=== PATIENT | female | born 1965 | race Caucasian/White ===

== ENCOUNTER 2018-03-27 16:58 | Inpatient (IN) ==
[2018-03-27] MEDS ORDERED: Bisacodyl 10 MG Supp RECTAL PRN (22:41)
[2018-03-28] MEDS: HYDROmorphone PF Inj 2 MG/ML Vial IV.PUSH PRN ×2 (02:09→22:05)
[2018-03-28] MEDS ORDERED: Chlorhexidine Gluconate 2% 1 Pack (2 Cloths) TOPICAL ONE (03:16)
[2018-03-28] MEDS ORDERED: Metoprolol Tartrate 25 MG Tablet PO ONE (03:16)
[2018-03-28] MEDS ORDERED: Sodium Chlor 0.9% Inj 500 ML IV.SIG SCH (04:00)
[2018-03-28] MEDS: Sod Chloride 0.9% Inj 1,000 ML IV.CONT SCH ×3 (04:03→20:04)
[2018-03-28] MEDS: Acetaminophen 325 MG Tablet PO PRN ×2 (04:03→08:33)
--- NOTE | 2018-03-28 04:16 | P.HPIM ---
History of Present Illness Service: [facility] hospitalists Primary Care Physician: UNKNOWN Chief Complaint: Left ankle pain with inability to bear weight History of Present Illness: Mrs. Giraldo is a 53-year-old female with a history of lupus, fibromyalgia, Prachi's thyroiditis, migraines, gastroesophageal reflux disease, and basal cell skin cancer who presented to the emergency room in [place] on 03/27/2018 complaining of severe left ankle pain following a fall outside of her home. She was found to have a distal fibula fracture with lateral subluxation of tibiotalar joint and widened tib-fib syndesmosis on x-ray and was transferred to [facility] for further evaluation and management under the hospitalist service. Patient is seen in her hospital room. She reports severe headache as well as left ankle pain. She suspects that her headache may have been precipitated by IV opiates administered in [place] and also may be secondary to an increased state of anxiety that she is currently experiencing. She states she was walking [place] back of her house when she lost balance and fell. She had severe left ankle pain accompanied by nausea and dizziness after falling and states she could hear a "pop"as she fell down. She denies loss of consciousness, syncope, or hitting her head upon falling. She denies any recent fevers, chills, nausea, vomiting, diarrhea, chest pain, shortness of breath, or dizziness. Inpatient Certification: I certify that the inpatient services were ordered in accordance with Medicare regulations governing the order. This includes certification that hospital inpatient services are reasonable and necessary and in the case of services not specified as inpatient-only under 42 CFR 419.22(n), that they are appropriately provided as inpatient services in accordance to with the 2-midnight benchmark under 43 CFR 412.3(e) Estimated Total Length of Stay (Days): 3 Plans for Post Hospital Care: Home Review of Systems All other systems reviewed negative except as stated in HPI PMFSH - History History Provided By: Patient - Medical History Medical History: Medical History (Last Updated 03/28/18 @ 02:34 by Rachael Reilly RN) Anemia Asthma Fibromyalgia GERD (gastroesophageal reflux disease) History of blood product transfusion Hx of skin cancer, basal cell Hypothyroidism Lupus Migraine Prachi's disease - Surgical History Surgical History: Surgical History (Last Updated 10/01/18 @ 17:08 by Mellisa Monzon RN) H/O: - Family History Family History: Family History (Last Updated 03/28/18 @ 04:11 by BLAYNE Helm) Son Family history of asthma - Tobacco History Second Hand Smoke Exposure: No Tobacco Use In Past 30 Days: No Smoking Status: Never smoker - Alcohol History How Often Do You Have a Drink Containing Alcohol: Never - Substance Use History Substance History: No History of Abuse - Immunization History Hx Influenza Vaccine This Season: No Medications and Allergies Active Medications: Active Medications Acetaminophen (Tylenol) 650 mg PO Q4H PRN PRN Reason: Temp > 100.4/CRUZ Bisacodyl (Dulcolax Supp) 10 mg RECTAL DAILY PRN PRN Reason: SEVERE CONSITIPATION Hydromorphone HCl (Dilaudid Pf Inj) 1 mg IV.PUSH Q4H PRN PRN Reason: pain > 4 Sodium Chloride (Ns Inj) 1,000 mls @ 100 mls/hr IV.CONT .Q10H [facility] Lactated Ringer's (Lr 1000 Ml Inj) 1,000 mls @ 30 mls/hr IV.SIG .Q24H [facility] Stop: 03/29/18 03:29 Sodium Chloride (Ns Inj) 500 mls @ 30 mls/hr IV.SIG .Q10H [facility] Lorazepam (Ativan Inj) 1 mg IV.PUSH ONCE ONE Stop: 03/28/18 04:04 Ondansetron HCl (Zofran Inj) 4 mg IV.PUSH Q6H PRN PRN Reason: NAUSEA OR VOMITING Last Admin: 03/28/18 02:08 Dose: 4 mg Sennosides (Senokot) 17.2 mg PO Q12H PRN PRN Reason: Moderate Constipation Allergies Allergy/AdvReac Type Severity Reaction Status Date / Time Influenza Virus Vaccines Allergy Hives Verified 03/27/18 17:48 Home Medications Medication Instructions Recorded Confirmed Type levothyroxine 100 mg PO DAILY 03/27/18 03/28/18 History omeprazole-sodium bicarbonate 1 cap PO TID 03/27/18 03/28/18 History [Zegerid] Exam Vital signs: Intake & Output 03/27/18 03/27/18 03/28/18 06:59 18:59 06:59 Weight 103.419 kg Other: Weight On Admission 103.419 kg Narrative: GENERAL: This is a obese middle-aged female patient, complaining of a headache. SKIN: No rashes. Cool and dry. HEAD: Atraumatic. Normocephalic. EYES: No scleral icterus. No injection or drainage. ENT: Nose without bleeding, purulent drainage. NECK: Trachea midline. No JVD. CARDIOVASCULAR: Regular rate and rhythm without murmurs, gallops, or rubs. RESPIRATORY: Clear to auscultation. Breath sounds equal bilaterally. No wheezes , rales, or rhonchi. GASTROINTESTINAL: Normally active bowel sounds. Abdomen soft, non-tender, nondistended. No guarding. MUSCULOSKELETAL: Left lower extremity in splint. Patient is able to wiggle her toes, sensation is intact, and capillary refill is brisk. NEUROLOGICAL: Awake and alert. Motor and sensory grossly within normal limits. Normal speech. . Caprini VTE Risk Assessment Caprini VTE Risk Assessment: Moderate/High Risk (score >= 2) Caprini Risk Assessment Model: Point Value = 1 Point Value = 2 Point Value = 3 Point Value = 5 Age 41-60 Minor surgery BMI > 25 kg/m2 Swollen legs Varicose veins or History of unexplained or recurrent spontaneous Oral contraceptives or hormone replacement Sepsis (< 1 month) Serious lung disease, including pneumonia (< 1 month) Abnormal pulmonary function Acute myocardial infarction Congestive heart failure (< 1 month) History of inflammatory bowel disease Medical patient at bed rest Age 61-74 Arthroscopic surgery Major open surgery (> 45 min) Laparoscopic surgery (> 45 min) Malignancy Confined to bed (> 72 hours) Immobilizing plaster cast Central venous access Age >= 75 History of VTE Family history of VTE Factor V Leiden Prothrombin [id number] Lupus anticoagulant Anticardiolipin antibodies Elevated serum homocysteine Heparin-induced thrombocytopenia Other congenital or acquired thrombophilia Stroke (< 1 month) Elective arthroplasty Hip, pelvis, or leg fracture Acute spinal cord injury (< 1 month) Prophylaxis Regimen: Total Risk Factor Score Risk Level Prophylaxis Regimen 0-1 Low Early ambulation 2 Moderate Order ONE of the following: *Sequential Compression Device (SCD) *Heparin 5000 units SQ BID 3-4 Higher Order ONE of the following medications: *Heparin 5000 units SQ TID *Enoxaparin/Lovenox 40 mg SQ daily (WT < 150 kg, CrCl > 30 mL/min) *Enoxaparin/Lovenox 30 mg SQ daily (WT < 150 kg, CrCl > 10-29 mL/min) *Enoxaparin/Lovenox 30 mg SQ BID (WT < 150 kg, CrCl > 30 mL/min) AND/OR *Sequential Compression Device (SCD) 5 or more Highest Order ONE of the following medications: *Heparin 5000 units SQ TID (Preferred with Epidurals) *Enoxaparin/Lovenox 40 mg SQ daily (WT < 150 kg, CrCl > 30 mL/min) *Enoxaparin/Lovenox 30 mg SQ daily (WT < 150 kg, CrCl > 10-29 mL/min) *Enoxaparin/Lovenox 30 mg SQ BID (WT < 150 kg, CrCl > 30 mL/min) AND *Sequential Compression Device (SCD) Assessment and Plan - Plan Mrs. Giraldo is a 53-year-old female with a history of lupus, fibromyalgia, Prachi's thyroiditis, migraines, gastroesophageal reflux disease, and basal cell skin cancer who presented to the emergency room in [place] on 03/27/2018 complaining of severe left ankle pain following a fall outside of her home. She was found to have a left distal fibula fracture with lateral subluxation of tibiotalar joint and widened tib-fib syndesmosis on x-ray and was transferred to [facility] for further evaluation and management under the hospitalist service. Left distal fibula fracture with lateral subluxation of tibiotalar joint and widened tib-fib syndesmosis -Consult orthopedic surgery -N.p.o. -Dilaudid 1 mg IV every 4 hours as needed pain -IV fluid hydration with normal saline at 100 cc/h Anxiety -We will give Ativan 1 mg IV x1 dose now -Monitor Leukocytosis -Suspect this is reactive secondary to pain and stress -Repeat CBC in a.m. and follow results Headache -history of "migraines" -Tylenol PRN -monitor DVT prophylaxis -SCDs nonoperative extremity Discussed Condition With: Dr. Robles, RN, and patient H&P: Quality - VTE Deep Vein Thrombosis/Pulmonary Embolism Present on Admission: No
--- NOTE | 2018-03-28 13:21 | P.PNADD ---
Addendum to Inpatient Note Reason for Addendum: Additional Documentation Additional information: EKG from 03/28/18 reviewed with , no acute findings at this time. Noted inverted T-wave in V1 on EKG from 03/27/18 otherwise no other change noted.
[2018-03-28 13:27] LABS: Baso # (Auto) 0.1 th/mm3 (0.0-0.2); Baso % (Auto) 0.5 % (0.0-2.0); Eos # (Auto) 0.3 th/mm3 (0.0-0.4); Eos % (Auto) 2.3 % (0.0-4.0); Hematocrit 34.4 % (35.0-46.0); Hemoglobin 12.3 gm/dL (11.6-15.3); Lymph # (Auto) 2.3 th/mm3 (1.0-4.8); Lymph % (Auto) 20.9 % (9.0-44.0); Mean Corpuscular HGB Conc 35.8 % (32.0-36.0); Mean Corpuscular Hemoglobin 28.8 pg (27.0-34.0); Mean Corpuscular Volume 80.4 fL (80.0-100.0); Mean Platelet Volume 8.1 fL (7.0-11.0); Mono # (Auto) 0.7 th/mm3 (0.0-0.9); Mono % (Auto) 6.4 % (0.0-8.0); Neut # (Auto) 7.8 th/mm3 (1.8-7.7); Neut % (Auto) 69.9 % (16.0-70.0); Platelet Count 291 th/mm3 (150-450); Red Blood Count 4.27 mil/mm3 (4.00-5.30); White Blood Count 11.2 th/mm3 (4.0-11.0)
[2018-03-28] MEDS ORDERED: ALPRAZolam 0.25 MG Tablet PO ONE (13:30)
[2018-03-28 13:41] LABS: Anion Gap 7 meq/L (5-15); Blood Urea Nitrogen 12 mg/dL (7-18); Calcium 8.2 mg/dL (8.5-10.1); Carbon Dioxide 27.7 meq/L (21.0-32.0); Chloride 108 meq/L (98-107); Glomerular Filtration Rate Greater Than 89 mL/min (>89); Glucose,Random 99 mg/dL (74-106); Potassium 3.7 meq/L (3.5-5.1); Sodium 143 meq/L (136-145)
--- NOTE | 2018-03-28 15:39 | P.CONOP ---
[facility] Orth[facility] Consult Note - [facility] Consult date: 03/28/18 Consult reason: fracture (53 year old female who fell and twisted her ankle at home. She denies any other injuries. She locates the pain to the entire left ankle. It is worse with movement, better with immobilization and pain medication. No numbness or tingling. No previous injury to this ankle. ) Chief complaint: Bimalleolar Fracture with Syndesmosis Disruption Review of Systems All other systems reviewed negative except as stated in [facility] - History History Provided By: Patient - Medical History Medical History: Medical History (Last Reviewed 03/28/18 @ 15:34 by Calista Brown MD) Anemia Asthma Fibromyalgia GERD (gastroesophageal reflux disease) History of blood product transfusion Hx of skin cancer, basal cell Hypothyroidism Lupus Migraine Prachi's disease - Surgical History Surgical History: Surgical History (Last Reviewed 03/28/18 @ 15:35 by Calista Brown MD) H/O: - Family History Family History: Family History (Last Reviewed 03/28/18 @ 15:35 by Calista Brown MD) Son Family history of asthma - Social History I have reviewed the patient's Social History: Yes - Tobacco History Second Hand Smoke Exposure: No Tobacco Use In Past 30 Days: No Smoking Status: Never smoker - Alcohol History How Often Do You Have a Drink Containing Alcohol: Never - Substance Use History Substance History: No History of Abuse - Immunization History Hx Influenza Vaccine This Season: No Medications and Allergies Active Medications: Active Medications Acetaminophen (Tylenol) 650 mg PO Q4H PRN PRN Reason: Temp > 100.4/CRUZ Last Admin: 03/28/18 08:33 Dose: 650 mg Bisacodyl (Dulcolax Supp) 10 mg RECTAL DAILY PRN PRN Reason: SEVERE CONSITIPATION Hydromorphone HCl (Dilaudid Pf Inj) 1 mg IV.PUSH Q4H PRN PRN Reason: pain > 4 Sodium Chloride (Ns Inj) 1,000 mls @ 100 mls/hr IV.CONT .Q10H [facility] Last Admin: 03/28/18 04:03 Dose: 100 mls/hr Lactated Ringer's (Lr 1000 Ml Inj) 1,000 mls @ 30 mls/hr IV.SIG .Q24H [facility] Stop: 03/29/18 03:29 Last Admin: 03/28/18 04:03 Dose: 1 mls/hr Sodium Chloride (Ns Inj) 500 mls @ 30 mls/hr IV.SIG .Q10H [facility] Last Admin: 03/28/18 15:28 Dose: Not Given Ondansetron HCl (Zofran Inj) 4 mg IV.PUSH Q6H PRN PRN Reason: NAUSEA OR VOMITING Last Admin: 03/28/18 02:08 Dose: 4 mg Sennosides (Senokot) 17.2 mg PO Q12H PRN PRN Reason: Moderate Constipation Allergies Allergy/AdvReac Type Severity Reaction Status Date / Time Influenza Virus Vaccines Allergy Hives Verified 03/27/18 17:48 Home Medications Medication Instructions Recorded Confirmed Type levothyroxine 100 mg PO DAILY 03/27/18 03/28/18 History omeprazole-sodium bicarbonate 1 cap PO TID 03/27/18 03/28/18 History [Zegerid] Exam Vital signs: Vital Signs 03/28/18 09:03 03/28/18 09:47 03/28/18 12:00 Temperature 97.4 F L 97.2 F L Pulse Rate 71 66 Respiratory Rate 18 18 21 Blood Pressure 151/75 H 167/79 H Pulse Oximetry 98 99 Intake & Output 03/27/18 03/28/18 03/28/18 18:59 06:59 18:59 Weight 107.8 kg Other: # Voids 2 Date of Last Bowel Movement 03/27/18 Weight On Admission 103.419 kg Narrative: Left lower extremity exam reveals a splint in place. There is good capillary refill to all 5 toes. Sensation is intact to the toes. She is able to wiggle her toes. No pain with gentle range of motion of the knee or hip. Right lower extremity and bilateral upper extremities within normal limits. - Constitutional no acute distress - Routine HEENT Exam Head: Present: normocephalic, atraumatic - Routine Respiratory Exam Absent: accessory muscle use - Routine Cardiovascular Exam Present: RRR Results - Labs Result Diagrams: 03/28/18 12:25 03/28/18 12:25 Labs: Laboratory Results - last 24 hr 03/28/18 03/28/18 12:25 12:25 WBC 11.2 H RBC 4.27 Hgb 12.3 Hct 34.4 L MCV 80.4 MCH 28.8 MCHC 35.8 RDW 15.0 Plt Count 291 MPV 8.1 Neut % (Auto) 69.9 Lymph % (Auto) 20.9 [place] % (Auto) 6.4 Eos % (Auto) 2.3 Baso % (Auto) 0.5 Neut # (Auto) 7.8 H Lymph # (Auto) 2.3 [place] # (Auto) 0.7 Eos # (Auto) 0.3 Baso # (Auto) 0.1 WBC Differential . Differential Comment Auto diff final Sodium 143 Potassium 3.7 Chloride 108 H Carbon Dioxide 27.7 Anion Gap 7 BUN 12 Creatinine 0.66 Estimated GFR Greater than 89 Random Glucose 99 Calcium 8.2 L - Diagnostic results Ankle/Foot x-ray: report reviewed, image reviewed (left ligamentous trimalleolar ankle fracture) Assessment and Plan - Problem List (1) Bimalleolar ankle fracture Code(s): S82.843A - Displaced bimalleolar fracture of unspecified lower leg, initial encounter for closed fracture Status: Acute Qualifiers: Encounter type: initial encounter Fracture type: closed Laterality: left Qualified Code(s): S82.842A - Displaced bimalleolar fracture of left lower leg, initial encounter for closed fracture - Assessment and Plan 53 year old female with left ligamentous trimalleolar ankle fracture. Plan: 1. To OR for ORIF left ankle and possible syndesmosis fixation 2. NPO 3. NWB LLE 4. Pain control
[2018-03-28] MEDS ORDERED: ceFAZolin 2 GM Premix Inj 2 GM/50 ML PIGGYBACK IV.SIG ONE (16:08)
[2018-03-28] MEDS ORDERED: Glycopyrrolate Inj 1 MG/5 ML Syringe IV.PUSH ONE (16:15)
[2018-03-28] MEDS ORDERED: Neostigmine Inj 5 MG/5 ML Syringe IV.PUSH ONE (16:15)
[2018-03-28] MEDS ORDERED: Labetalol HCl Inj 100 MG/20 ML Vial IV.CONT ONE (16:15)
[2018-03-28] MEDS ORDERED: Lidocaine PF 1% Inj 5 ML Syringe OTHER ONE (16:15)
[2018-03-28] MEDS ORDERED: Ketamine Inj 50 MG/5 ML Syringe IV.PUSH ONE (16:49)
--- NOTE | 2018-03-28 17:58 | ECG ---
Date Performed: 03/28/2018 Time Performed: 04:46:08 PTAGE: 53 years EKG: Sinus rhythm Extensive infarct - age undetermined Low QRS voltages in precordial leads Compared to previous willam ng, R wave progression is much worse, I suspect due to lead placement Abnormal ECG NO PREVIOUS TRACING DOCTOR: Emil Mayorga Interpretating Date/Time 03/28/2018 17:57:22
[2018-03-28] MEDS ORDERED: RESP: Albuterol Concentrated 2.5 MG/0.5 ML Neb ONE (18:58)
--- NOTE | 2018-03-28 19:00 | P.BOP ---
- Preoperative Diagnosis (1) Bimalleolar ankle fracture Date of procedure: 03/28/18 Procedure: open reduction internal fixation left ankle fracture Implants: Synthes distal fibula plate and screws Anesthesia: GETA Surgeon: Calista Brown MD Estimated blood loss (mL): 10 Tourniquet time (min): 104 Pathology: none sent Condition: stable Disposition: PACU
--- NOTE | 2018-03-28 19:00 | XR ---
EXAM DATE: 03/28/2018 12:00 AM EDT AGE/SEX: 53 years / Female INDICATIONS: ORIF left ankle. CLINICAL DATA: This is the patient's subsequent encounter. Patient reports that signs and symptoms h ave been present for 2 days and indicates a pain score of Nonresponsive. MEDICAL/SURGICAL HISTORY: Non-responsive. Non-responsive. COMPARISON: [facility]DL, ANKLE COMPLETE LEFT MIN 3V, 03/27/2018. [facility], ANKLE LIMITED LEFT 2V, 03/27/2018 . . FINDINGS: Interim open reduction and internal fixation of distal fibula fracture. There is a lateral plate with multiple screws and also an interfragmentary screw. Ankle mortise alignment appears normal. CONCLUSION: 1. Screw and plate fixation of distal fibula fracture in near-anatomic alignment. 2. Reduction of previously seen lateral subluxation of the tibiotalar joint in near-anatomic alignme nt. Electronically signed by: Fidel Stock MD 03/28/2018 6:58 PM EDT
[2018-03-28] MEDS ORDERED: fentaNYL Citrate Inj 100 MCG/2 ML Ampul ONE (19:24)
[2018-03-28] MEDS ORDERED: Morphine Inj 4 MG/ML Vial ONE (19:24)
--- NOTE | 2018-03-28 19:56 | XR ---
EXAM DATE: 03/28/2018 12:00 AM EDT AGE/SEX: 53 years / Female INDICATIONS: Aspiration, post extubation. CLINICAL DATA: This is the patient's initial encounter. Patient reports that signs and symptoms have been present for 1 day and indicates a pain score of 0/10. MEDICAL/SURGICAL HISTORY: None. None. COMPARISON: [facility]DL, CHEST 1V SINGLE AP, 03/27/2018. . FINDINGS: A single AP view of the chest demonstrates the lungs to be symmetrically aerated without evidence of mass, infiltrate or effusion. The cardiomediastinal contours are unremarkable. Osseous structures a re intact. CONCLUSION: No acute cardiopulmonary disease demonstrated. Electronically signed by: Fidel Stock MD 03/28/2018 7:54 PM EDT
[2018-03-29] MEDS: HYDROmorphone PF Inj 2 MG/ML Vial IV.PUSH PRN ×2 (03:21→08:13)
[2018-03-29] MEDS: Sod Chloride 0.9% Inj 1,000 ML IV.CONT SCH ×3 (04:23→18:13)
[2018-03-29] MEDS ORDERED: Naloxone Inj 0.4 MG/ML Vial IV.PUSH PRN (11:50)
--- NOTE | 2018-03-29 11:50 | P.PNIM ---
Subjective Interval history: Chief Complaint: Left ankle pain with inability to bear weight History of Present Illness: Mrs. Giraldo is a 53-year-old female with a history of lupus, fibromyalgia, Prachi's thyroiditis, migraines, gastroesophageal reflux disease, and basal cell skin cancer who presented to the emergency room in [place] on 03/27/2018 complaining of severe left ankle pain following a fall outside of her home. She was found to have a distal fibula fracture with lateral subluxation of tibiotalar joint and widened tib-fib syndesmosis on x-ray and was transferred to [facility] for further evaluation and management under the hospitalist service. Patient is seen in her hospital room. She reports severe headache as well as left ankle pain. She suspects that her headache may have been precipitated by IV opiates administered in [place] and also may be secondary to an increased state of anxiety that she is currently experiencing. She states she was walking [place] of [place] house when she lost balance and fell. She had severe left ankle pain accompanied by nausea and dizziness after falling and states she could hear a "pop"as she fell down. She denies loss of consciousness, syncope, or hitting her head upon falling. She denies any recent fevers, chills, nausea, vomiting, diarrhea, chest pain, shortness of breath, or dizziness. 10-2 EKG from 03/28/18 reviewed with , no acute findings at this time. Noted inverted T-wave in V1 on EKG from 03/27/18 otherwise no other change noted. SP ORIF LEFT ANKLE FRACTURE WITH SYNTHES DISTAL FIBULA PLATE AND SCREWS PT AND OT AM LABS INCREASE MOBILITY SWITCH TO PO PAIN MEDS Physical Exam Vital signs: Vital Signs 03/28/18 12:00 03/28/18 19:08 03/28/18 19:15 Temperature 97.2 F L 97.2 F L Pulse Rate 66 74 60 Respiratory Rate 21 18 18 Blood Pressure 167/79 H 142/72 H 152/73 H Pulse Oximetry 99 95 98 03/28/18 19:30 03/28/18 19:39 03/28/18 19:45 Temperature Pulse Rate 60 62 62 Respiratory Rate 17 17 Blood Pressure 151/78 H 144/76 H Pulse Oximetry 94 L 95 93 L 03/28/18 19:50 03/28/18 20:00 03/28/18 20:15 Temperature 97.8 F Pulse Rate 72 73 Respiratory Rate 19 18 Blood Pressure 158/83 H 166/85 H Pulse Oximetry 94 L 94 L 94 L 03/28/18 22:34 03/29/18 00:00 03/29/18 04:00 Temperature 97.7 F 98.5 F Pulse Rate 90 80 Respiratory Rate 18 18 17 Blood Pressure 155/77 H 157/70 H Pulse Oximetry 98 96 03/29/18 04:22 03/29/18 08:00 Temperature 97.9 F Pulse Rate 72 Respiratory Rate 18 20 Blood Pressure 164/75 H Pulse Oximetry 94 L Intake & Output 03/28/18 03/29/18 03/29/18 18:59 06:59 18:59 Intake Total 1350 / 1350 1000 / 1000 1000 / 1000 Output Total Balance 1340 / 1340 1000 / 1000 1000 / 1000 Weight 107.8 kg Intake: IV 750 / 750 1000 / 1000 1000 / 1000 NS Inj 1,000 ML @ 100 mls/hr IV 700 / 700 1000 / 1000 1000 / 1000 .CONT .Q10H [facility] Rx#:[id number] Ancef 2 GM Premix Inj 2 gm In 50 / 50 50 ml @ 0 mls/hr IV.SIG .STK- [facility] Rx#:[id number] Anesthesia Amount 600 / 600 Output: Estimated Blood Loss Other: # Voids 1 4 Date of Last Bowel Movement 03/27/18 Narrative: GENERAL: This is a obese middle-aged female patient, complaining of a headache. SKIN: No rashes. Cool and dry. HEAD: Atraumatic. Normocephalic. EYES: No scleral icterus. No injection or drainage. ENT: Nose without bleeding, purulent drainage. NECK: Trachea midline. No JVD. CARDIOVASCULAR: Regular rate and rhythm without murmurs, gallops, or rubs. RESPIRATORY: Clear to auscultation. Breath sounds equal bilaterally. No wheezes , rales, or rhonchi. GASTROINTESTINAL: Normally active bowel sounds. Abdomen soft, non-tender, nondistended. No guarding. MUSCULOSKELETAL: Left lower extremity in splint. Patient is able to wiggle her toes, sensation is intact, and capillary refill is brisk. NEUROLOGICAL: Awake and alert. Motor and sensory grossly within normal limits. Normal speech. Results - Labs CBC & Chem 7: 03/28/18 12:25 03/28/18 12:25 Laboratory Results - last 24 hr 03/28/18 03/28/18 12:25 12:25 WBC 11.2 H RBC 4.27 Hgb 12.3 Hct 34.4 L MCV 80.4 MCH 28.8 MCHC 35.8 RDW 15.0 Plt Count 291 MPV 8.1 Neut % (Auto) 69.9 Lymph % (Auto) 20.9 [place] % (Auto) 6.4 Eos % (Auto) 2.3 Baso % (Auto) 0.5 Neut # (Auto) 7.8 H Lymph # (Auto) 2.3 [place] # (Auto) 0.7 Eos # (Auto) 0.3 Baso # (Auto) 0.1 WBC Differential . Differential Comment Auto diff final Sodium 143 Potassium 3.7 Chloride 108 H Carbon Dioxide 27.7 Anion Gap 7 BUN 12 Creatinine 0.66 Estimated GFR Greater than 89 Random Glucose 99 Calcium 8.2 L - Imaging Impressions Ankle X-Ray 03/28/18 00:00 CONCLUSION: 1. Screw and plate fixation of distal fibula fracture in near-anatomic alignment. 2. Reduction of previously seen lateral subluxation of the tibiotalar joint in near-anatomic alignment. Chest X-Ray 03/28/18 00:00 CONCLUSION: No acute cardiopulmonary disease demonstrated. - Procedures - Preoperative Diagnosis (1) Bimalleolar ankle fracture Date of procedure: 03/28/18 Procedure: open reduction internal fixation left ankle fracture Implants: Synthes distal fibula plate and screws Anesthesia: GETA Surgeon: Yon Harris MD Estimated blood loss (mL): 10 Tourniquet time (min): 104 Pathology: none sent Condition: stable Disposition: PACU Documented By: YON HARRIS MD Assessment and Plan - Plan Mrs. Giraldo is a 53-year-old female with a history of lupus, fibromyalgia, Prachi's thyroiditis, migraines, gastroesophageal reflux disease, and basal cell skin cancer who presented to the emergency room in [place] on 03/27/2018 complaining of severe left ankle pain following a fall outside of her home. She was found to have a left distal fibula fracture with lateral subluxation of tibiotalar joint and widened tib-fib syndesmosis on x-ray and was transferred to [facility] for further evaluation and management under the hospitalist service. Left distal fibula fracture with lateral subluxation of tibiotalar joint and widened tib-fib syndesmosis -Consult orthopedic surgery -N.p.o. -Dilaudid 1 mg IV every 4 hours as needed pain -IV fluid hydration with normal saline at 100 cc/h SP ORIF OF LEFT ANKLE SWITCH TO PO PAIN MEDS Anxiety -We will give Ativan 1 mg IV x1 dose now -Monitor Leukocytosis -Suspect this is reactive secondary to pain and stress -Repeat CBC in a.m. and follow results Headache -history of "migraines" -Tylenol PRN -monitor DVT prophylaxis -SCDs nonoperative extremity Code Status: FULL CODE Discussed Condition With: RN AND PT AND CM Discharge Planning: HOPEFULLY HOME TOMORROW
[2018-03-29] MEDS ORDERED: Bisacodyl 10 MG Supp RECTAL PRN (11:52)
[2018-03-29] MEDS: oxyCODONE/Acetaminophen 10/325 Tablet PO PRN ×2 (14:12→20:56)
--- NOTE | 2018-03-29 15:45 | P.DCO ---
- Physical Therapy Order: Evaluate and treat, Improve ambulation, Strength and gait training - Home Health Nursing Order: Medical education, Signs/symptoms of disease process, Nursing assessment with vital signs - Home Health Aide Order: To assist in: Bathing and personal care, players assistant and meal prep - Case Management Consult Yes - Certification I have seen patient Ruma Giraldo on 03/29/18. My clinical findings support the need for the requested home health care services because: Limited mobility due to disease progression, Deconditioned with increased weakness, Limited ability to care for self, High risk of falls I certify that my clinical findings support that this patient is homebound because: Post-op weakness, Unsteady gait/balance, Non-ambulatory: confined to bed or chair
[2018-03-29] MEDS: Senna/Docusate Sodium 8.6/50 MG Tablet PO SCH (20:56)
--- NOTE | 2018-03-29 21:45 | P.PNOP ---
Subjective Interval history: No acute events overnight. Reports pain improved. Worked with physical therapy today which went very well. Looking forward to going home tomorrow. Physical Exam Vital signs: Vital Signs 03/28/18 22:34 03/29/18 00:00 03/29/18 04:00 Temperature 97.7 F 98.5 F Pulse Rate 90 80 Respiratory Rate 18 18 17 Blood Pressure 155/77 H 157/70 H Pulse Oximetry 98 96 03/29/18 04:22 03/29/18 08:00 03/29/18 12:00 Temperature 97.9 F 98 F Pulse Rate 72 78 Respiratory Rate 18 20 20 Blood Pressure 164/75 H 131/66 Pulse Oximetry 94 L 98 03/29/18 15:41 03/29/18 20:00 Temperature 98.3 F 98.5 F Pulse Rate 69 70 Respiratory Rate 18 17 Blood Pressure 140/77 164/79 H Pulse Oximetry 97 95 Intake & Output 03/29/18 03/29/18 03/30/18 06:59 18:59 06:59 Intake Total 1000 / 1000 1999 Balance 1000 / 1000 1999 Weight 107.8 kg Intake: IV 1000 / 1000 1999 NS Inj 1,000 ML @ 100 mls/hr IV 1000 / 1000 1999 .CONT .Q10H MOISÉS Rx#:[id number] Other: # Voids 4 6 Date of Last Bowel Movement 03/27/18 03/28/18 Narrative: Left ankle exam shows splint clean, dry, and intact without drainage. She is able to wiggle all toes and has good capillary refill and intact sensation. Results - Labs CBC & Chem 7: 03/28/18 12:25 03/28/18 12:25 - Procedures - Preoperative Diagnosis (1) Bimalleolar ankle fracture Date of procedure: 03/28/18 Procedure: open reduction internal fixation left ankle fracture Implants: Synthes distal fibula plate and screws Anesthesia: GETA Surgeon: Yon Harris MD Estimated blood loss (mL): 10 Tourniquet time (min): 104 Pathology: none sent Condition: stable Disposition: PACU Documented By: YON HARRIS MD Assessment and Plan - Ortho Post Op Day # 1 - Problem List (1) Closed left ankle fracture Code(s): S82.892A - Other fracture of left lower leg, initial encounter for closed fracture Status: Acute - Assessment and Plan 53 year old female POD 1 s/p left ankle ORIF Plan: 1. NWB LLE in splint 2. Continue PT 3. OK for d/c from orthopedic standpoint, follow up in clinic in 2 weeks
[2018-03-29] MEDS ORDERED: Zolpidem Tartrate 5 MG Tablet PO PRN (23:57)
[2018-03-30] MEDS ORDERED: Sodium Chloride 0.9% 2 ML Flush PRN IV.FLUSH (00:02)
[2018-03-30] MEDS: oxyCODONE/Acetaminophen 10/325 Tablet PO PRN ×2 (03:47→10:31)
[2018-03-30] MEDS: Sod Chloride 0.9% Inj 1,000 ML IV.CONT SCH ×2 (03:50→11:03)
[2018-03-30 07:57] LABS: Baso % (Auto) 0.5 % (0.0-2.0); Eos # (Auto) 0.3 th/mm3 (0.0-0.4); Eos % (Auto) 2.6 % (0.0-4.0); Hematocrit 34.3 % (35.0-46.0); Hemoglobin 11.4 gm/dL (11.6-15.3); Lymph % (Auto) 19.4 % (9.0-44.0); Mean Corpuscular HGB Conc 33.4 % (32.0-36.0); Mean Corpuscular Hemoglobin 27.4 pg (27.0-34.0); Mean Corpuscular Volume 81.9 fL (80.0-100.0); Mono # (Auto) 0.9 th/mm3 (0.0-0.9); Mono % (Auto) 8.4 % (0.0-8.0); Neut # (Auto) 7.2 th/mm3 (1.8-7.7); Neut % (Auto) 69.1 % (16.0-70.0); Platelet Count 279 th/mm3 (150-450); Red Blood Count 4.18 mil/mm3 (4.00-5.30); Red Cell Distribution Width 15.1 % (11.6-17.2); White Blood Count 10.4 th/mm3 (4.0-11.0)
[2018-03-30 08:13] LABS: Alanine Aminotransferase 26 U/L (10-53); Albumin 2.7 g/dL (3.4-5.0); Anion Gap 7 meq/L (5-15); Aspartate Aminotransferase 23 U/L (15-37); Calcium 7.6 mg/dL (8.5-10.1); Carbon Dioxide 27.6 meq/L (21.0-32.0); Chloride 108 meq/L (98-107); Glomerular Filtration Rate 76 mL/min (>89); Glucose,Random 110 mg/dL (74-106); Phosphorus 2.6 mg/dL (2.5-4.9); Potassium 3.7 meq/L (3.5-5.1); Sodium 143 meq/L (136-145)
[2018-03-30 08:21] LABS: Alkaline Phosphatase 88 U/L (45-117); Blood Urea Nitrogen 12 mg/dL (7-18); Free T4 (Free Thyroxine) 0.94 ng/dL (0.76-1.46); Total Protein 6.7 g/dL (6.4-8.2)
[2018-03-30] MEDS: Senna/Docusate Sodium 8.6/50 MG Tablet PO SCH (08:43)
--- NOTE | 2018-03-30 08:50 | P.DS ---
Date of admission: 03/28/18 01:50 Primary care physician: UNKNOWN Attending physician on discharge: Agus Lopez Anticipated date of discharge: 03/30/18 Brief History from admission: Mrs. Giraldo is a 53-year-old female with a history of lupus, fibromyalgia, Prachi's thyroiditis, migraines, gastroesophageal reflux disease, and basal cell skin cancer who presented to the emergency room in [place] on 03/27/2018 complaining of severe left ankle pain following a fall outside of her home. She was found to have a distal fibula fracture with lateral subluxation of tibiotalar joint and widened tib-fib syndesmosis on x-ray and was transferred to [facility] for further evaluation and management under the hospitalist service. Patient is seen in her hospital room. She reports severe headache as well as left ankle pain. She suspects that her headache may have been precipitated by IV opiates administered in [place] and also may be secondary to an increased state of anxiety that she is currently experiencing. She states she was walking her [place] the [place] in the back of her house when she lost balance and fell. She had severe left ankle pain accompanied by nausea and dizziness after falling and states she could hear a "pop"as she fell down. She denies loss of consciousness, syncope, or hitting her head upon falling. She denies any recent fevers, chills, nausea, vomiting, diarrhea, chest pain, shortness of breath, or dizziness. DS: Medications - Discharge Medications Prescriptions: oxycodone-acetaminophen 1 tab PO Q6H PRN #28 tab PRN Reason: Pain Scale 6 To 10 DS: Summary Hospital Course: 53-year-old female with past medical history significant for lupus, fibromyalgia , Prachi's thyroiditis, migraines, GERD and basal cell skin cancer presented to the emergency department in [place] on 03/27 following a fall. She was found to have a left ligamentous trimalleolar ankle fracture. Patient was transferred to [facility] for further management. Patient was seen and evaluated by orthopedic services and underwent ORIF of left ankle 03/28 by . Patient was seen and evaluated following surgery by physical therapy. Provided with walker as well as home health care. Cleared by orthopedic services for discharge. She is seen and examined this morning resting in bed comfortably in no acute distress reports she is ready to go home today. Denies any fevers, chills, nausea, vomiting, diarrhea, cough or shortness of breath. Reports that her pain is well controlled. [employer] Prescription Drug Monitoring Database has been queried and verified prior to prescribing the controlled subsection. Patient is having significant pain caused by ankle fracture which will last more than 3 days. Trial of alternative treatment options other than prescribed opioids has not helped. I believe that it is medically necessary to treat the patients pain because it is affecting patients ability to ambulate with walker and perform duties of daily living. - Time Spent with Patient Total time spent providing and/or coordinating discharge services: Less than 30 minutes - Quality: VTE Deep Vein Thrombosis/Pulmonary Embolism Present on Admission: No Exam Vital signs: Vital Signs 03/29/18 12:00 03/29/18 15:41 03/29/18 20:00 Temperature 98 F 98.3 F 98.5 F Pulse Rate 78 69 84 Respiratory Rate 20 18 17 Blood Pressure 131/66 140/77 164/79 H Pulse Oximetry 98 97 95 03/29/18 23:11 03/30/18 00:00 Temperature 98.2 F Pulse Rate 67 65 Respiratory Rate Blood Pressure 152/72 H Pulse Oximetry 95 Intake & Output 03/29/18 03/30/18 03/30/18 18:59 06:59 18:59 Intake Total 1999 420 / 420 Output Total 520 / 520 Balance 1999 -100 / -100 Weight 107.8 kg Intake: IV 1999 NS Inj 1,000 ML @ 100 mls/hr IV 1999 .CONT .Q10H MOISÉS Rx#:[id number] Oral 420 / 420 Output: Urine 520 / 520 Other: # Voids 6 Date of Last Bowel Movement 03/28/18 03/28/18 Narrative: GENERAL: This is a obese middle-aged female patient. SKIN: No rashes. Cool and dry. HEAD: Atraumatic. Normocephalic. EYES: No scleral icterus. ENT: Nose without bleeding, purulent drainage. NECK: Trachea midline. CARDIOVASCULAR: Regular rate and rhythm without murmurs, gallops, or rubs. RESPIRATORY: Clear to auscultation. Breath sounds equal bilaterally. GASTROINTESTINAL: Normally active bowel sounds. Abdomen soft, non-tender, nondistended. MUSCULOSKELETAL: Left lower extremity in soft cast. Patient is able to wiggle her toes, sensation is intact, and capillary refill is brisk. NEUROLOGICAL: Awake and alert. Motor and sensory grossly within normal limits. Normal speech. Results Procedures completed during hospitalization: - Preoperative Diagnosis (1) Bimalleolar ankle fracture Date of procedure: 03/28/18 Procedure: open reduction internal fixation left ankle fracture Implants: Synthes distal fibula plate and screws Anesthesia: GETA Surgeon: Calista Harris MD Estimated blood loss (mL): 10 Tourniquet time (min): 104 Pathology: none sent Condition: stable Disposition: PACU Documented By: CALISTA HARRIS MD Labs on day of discharge: Labs from last 24 hours 03/30/18 03/30/18 03/30/18 07:41 07:41 07:11 WBC 10.4 RBC 4.18 Hgb 11.4 L Hct 34.3 L MCV 81.9 MCH 27.4 MCHC 33.4 RDW 15.1 Plt Count 279 MPV 8.0 Neut % (Auto) 69.1 Lymph % (Auto) 19.4 [place] % (Auto) 8.4 H Eos % (Auto) 2.6 Baso % (Auto) 0.5 Neut # (Auto) 7.2 Lymph # (Auto) 2.0 [place] # (Auto) 0.9 Eos # (Auto) 0.3 Baso # (Auto) 0.0 WBC Differential . Differential Comment Auto diff final Sodium 143 Potassium 3.7 Chloride 108 H Carbon Dioxide 27.6 Anion Gap 7 BUN 12 Creatinine 0.79 Estimated GFR 76 L Random Glucose 110 H Hemoglobin A1c Pending Calcium 7.6 L Phosphorus 2.6 Magnesium 2.0 Total Bilirubin 0.3 AST 23 ALT 26 Alkaline Phosphatase 88 Total Protein 6.7 Albumin 2.7 L TSH 10.200 H Free T4 0.94 - Impressions ITS Impressions Ankle X-Ray 03/28/18 00:00 CONCLUSION: 1. Screw and plate fixation of distal fibula fracture in near-anatomic alignment. 2. Reduction of previously seen lateral subluxation of the tibiotalar joint in near-anatomic alignment. Chest X-Ray 03/28/18 00:00 CONCLUSION: No acute cardiopulmonary disease demonstrated. Discharge Plan - Discharge Disposition Patient Disposition: 01 Discharge Home - Discharge Condition Condition: Good - Discharge Order Discharge Orders: Discharge Order (Routine); Ordered 03/30/18 Ordered By: Omar Manning - Physicians Team Primary Care Provider: UNKNOWN, Attending Provider: Agus Lopez Other Providers: Trav Askew MD - Rxs /Orders / Referrals /Forms Prescriptions: New oxycodone-acetaminophen 10-325 mg Tablet 1 tab PO Q6H PRN (Reason: Pain Scale 6 To 10) Qty: 28 RF: 0 Continue levothyroxine 100 mcg Capsule 100 mg PO DAILY omeprazole-sodium bicarbonate [Zegerid] 20-1.1 mg-gram Capsule 1 cap PO TID Ambulatory Orders / Order Sets / DME: Walker With Front Wheels (1 each) (Routine) Timeframe: 99 Months Location: Determined by Patient Ordered By: Danish Gallardo Referrals: UNKNOWN, [Primary Care Provider] - See Instructions - Discharge Instructions Patient Printed Instructions: Oxycodone/Acetaminophen (By mouth), How to Choose and Use a Walker (GEN), ORIF of an Ankle Fracture (DC), Non Weight Bearing Activity (ED) Additional Instructions: Prescriptions given at time of discharge Follow up with surgeon and physicians as directed - Post Discharge Care Plan Care Plan Goals: Your Health Problems: Goals to Promote Your Health: * To prevent worsening of your condition * To maintain your health at the optimal level Directions to Meet Your Goals: * Take your medications as prescribed * Follow your dietary instruction * Follow activity as directed * Keep your appointments as scheduled * Take your immunizations and boosters as scheduled * If your symptoms worsen call your PCP * If no PCP go to Urgent Care or Emergency Room Smoking is dangerous to your health. Avoid second hand smoke. You may reach the 24-hour crisis hotline for domestic abuse at .
[2018-03-30] MEDS ORDERED: Sodium Chloride 0.9% 2 ML Flush BID IV.FLUSH SCH (09:00)
[2018-03-30 09:28] VITALS: BP 138/64; PULSE 67; RESP 20; TEMP 97.9; O2SAT 93
[2018-03-30 18:00] LABS: Hemoglobin A1c 5.8 % (4.3-6.0)
--- NOTE | 2018-03-31 12:41 | MP ---
cc: Calista Brown MD DATE OF OPERATION: 03/28/2018 PREOPERATIVE DIAGNOSIS: Ligamentous trimalleolar left ankle fracture. POSTOPERATIVE DIAGNOSIS: Ligamentous trimalleolar left ankle fracture. NAME OF OPERATION: Open reduction and internal fixation of left ankle fracture. SURGEON: Calista Brown MD MACHINE CHOCOLATE MOLDER: None. ANESTHESIA: General endotracheal. ESTIMATED BLOOD LOSS: 10 mL. TOURNIQUET TIME: 104 minutes at 250 mmHg. IMPLANTS USED: Synthes distal fibula locking plate. DESCRIPTION OF PROCEDURE: The patient was brought to the operating room and general anesthesia was administered. A tourniquet was then placed on the left thigh and the left lower extremity was prepped and draped in the usual sterile fashion. A timeout was performed, confirming the correct side, site and procedure, and everyone in the room was in agreement. The leg was then elevated, exsanguinated with an Esmarch and the tourniquet was inflated to 250. A straight lateral incision was made over the lateral malleolus and dissection was carried down to the deeper tissue. Superficial peroneal nerve was identified and protected. Dissection was then continued sharply down to bone and the fracture site was identified. Irrigation and curettes were used to clear the fracture site of fracture hematoma and any soft tissue. Fracture was then reduced and clamped. X-rays confirmed anatomic alignment. We then placed a 2.7 mm lag screw across the distal fracture site, obtaining good compression of the fracture. A butterfly fragment noted proximally was not amenable to lag screw fixation. An appropriate size Synthes distal fibula plate was then selected and was placed laterally. X-ray was used to confirm appropriate position and K-wires were used to hold it in place. Cortical screws were then placed proximally and distally to bring the plate down to bone. The distal locking screws were then placed and the distal cortical screw was changed out for a locking screw. Three cortical screws were then placed proximally above the butterfly fragment. X-ray images were then taken, which confirmed anatomic reduction and good positioning of the hardware. External rotation stress views were then obtained and showed no medial clear space widening. Therefore, syndesmotic fixation was not indicated. The small posterior malleolus fracture fragment was also stable and a decision was made to leave this alone. The wound was then irrigated and closed in a layered fashion with 0 Vicryl, 2-0 Vicryl and 3-0 nylon for the skin, followed by application of Xeroform, 4 x 4's, ABD and sterile cast padding. The tourniquet was then deflated and a well-padded short leg splint was applied. The patient was then awoken and taken to the recovery room in stable condition. The patient will remain nonweightbearing on this extremity and should follow up with me in 2 weeks. MD BEATRIZ Long/rosetta , 10:05 AM , 10:12 AM
== END 2018-03-30 11:01 | disposition home or self-care (01) ==
LOC: NEDDLT 03-28 01:40 → N06 03-28 01:50
PROVIDERS: ADMIT Hospitalist; ATTEND Hospitalist
PROC: ORIFANK (2018-03-28 16:17)